=== PATIENT | female | born 1985 | race Caucasian/White ===

== ENCOUNTER 2017-10-29 08:08 | Emergency (ER) | payer MEDICAID ==
[2017-10-29] MEDS: IBUPROFEN 800 MG TAB PO (11:42)
== END 2017-10-29 11:52 | disposition home or self-care (01) ==
LOC: FTE 08:08
DX: H10.10 Acute atopic conjunctivitis, unspecified eye (principal); J01.90 Acute sinusitis, unspecified
CPT/HCPCS: 99284; Z7502

== ENCOUNTER 2018-07-09 23:26 | Emergency (ER) | payer MEDICAID | END 2018-07-10 03:38 | disposition home or self-care (01) | LOC: FTE 23:26 | DX: S99.922A Unspecified injury of left foot, initial encounter (principal); W22.8XXA Striking against or struck by other objects, initial encounter; Y92.9 Unspecified place or not applicable | CPT/HCPCS: 73630; 73630-LT; 99283-25 ==